=== PATIENT | female | born 1950 | race Caucasian/White ===

== ENCOUNTER 2022-12-22 08:55 | Outpatient (CLI) | payer MEDICARE | END 2022-12-22 08:56 | disposition home or self-care (01) | LOC: BICMAMMO 08:55 | PROVIDERS: ATTEND Family Medicine | DX: Z13.820 Encounter for screening for osteoporosis (principal); N95.9 Unspecified menopausal and perimenopausal disorder | CPT/HCPCS: 77063; 77067; 77080 ==

== ENCOUNTER 2023-04-05 12:27 | Outpatient (CLI) | payer MEDICARE | END 2023-04-05 12:28 | disposition home or self-care (01) | LOC: MRI 12:27 | PROVIDERS: ATTEND Family Medicine | DX: R47.01 Aphasia (principal) | CPT/HCPCS: 70553; 93306 ==

== ENCOUNTER 2023-04-26 15:48 | Outpatient (CLI) | payer MEDICARE | END 2023-04-26 15:49 | disposition home or self-care (01) | LOC: ULT 15:48 | PROVIDERS: ATTEND Family Medicine | DX: R47.01 Aphasia (principal) | CPT/HCPCS: 93880 ==